=== PATIENT | female | born 1950 | race Caucasian/White ===

== ENCOUNTER 2020-10-13 07:04 | Emergency (ER) | payer MEDICARE, OTHER ==
[~2020-10-13 07:04] MED LIST: PROTONIX40 MG PO; ZOFRAN4 MG PO
[2020-10-13 08:07] LABS: HEMOGLOBIN 14.4 gm/dl (12.3-15.3); RED BLOOD COUNT 4.64 M/UL (4.00-5.10); WHITE BLOOD COUNT 7.5 K/UL (4.5-11.0)
[2020-10-13 08:28] LABS: BUN/CREATININE RATIO 17 (0-10)
[2020-10-13] MEDS ORDERED: ZOFRAN ODT 4 MG4 MG SL ×2 (08:47→09:02)
== END 2020-10-13 09:12 | disposition home or self-care (01) ==
LOC: ER1 07:04
PROVIDERS: Emergency Medicine
DX: R11.0 Nausea (principal); R51.9 Headache, unspecified; R68.83 Chills (without fever); T50.B95A Adverse effect of other viral vaccines, initial encounter
CPT/HCPCS: 80053; 81001; 83690; 85025; 96374; 96375; 99282; J1885; J2405; J7030

== ENCOUNTER 2021-01-21 00:44 | Emergency (ER) | payer MEDICARE, OTHER ==
[~2021-01-21 00:44] MED LIST changes: +ZOFRAN ODT 4 MG4 MG SL
[2021-01-21 03:55] LABS: HEMOGLOBIN 15.4 gm/dl (12.3-15.3); RED BLOOD COUNT 5.01 M/UL (4.00-5.10); WHITE BLOOD COUNT 2.8 K/UL (4.5-11.0)
[2021-01-21] MEDS ORDERED: PHENERGAN 12.12.5 M1 PO (07:04)
== END 2021-01-21 07:16 | disposition home or self-care (01) ==
LOC: ER1 00:44
PROVIDERS: Family Medicine
DX: D72.819 Decreased white blood cell count, unspecified (principal); R73.9 Hyperglycemia, unspecified; R63.0 Anorexia; Z20.822 Contact with and (suspected) exposure to COVID-19; I10 Essential (primary) hypertension
CPT/HCPCS: 71045; 80053; 81001; 82550; 82553; 83605; 83874; 84439; 84443; 84484; 85025; 93005; 96374; 99284; J2405; U0002

== ENCOUNTER → 2021-01-28 | Outpatient (CLI) | payer MEDICARE, OTHER ==
[~2021-01-28] MED LIST changes: +PHENERGAN 12.12.5 M1 PO
[2021-01-28 15:37] LABS: HEMOGLOBIN 13.2 gm/dl (12.3-15.3); RED BLOOD COUNT 4.36 M/UL (4.00-5.10); WHITE BLOOD COUNT 7.2 K/UL (4.5-11.0)
[2021-01-28 16:05] LABS: BUN/CREATININE RATIO 19 (0-10)
[2021-01-29 09:14] LABS: VITAMIN D, 25-HYDROXY 24.3 ng/mL (30.0-100.0)
[2021-01-29 12:14] LABS: HBSAG SCREEN Negative (Negative); HEP A AB, IGM Negative (Negative); HEP B CORE AB, IGM Negative (Negative); HEP C VIRUS AB <0.1 (0.0-0.9)
== END ==
LOC: LAB 13:40
PROVIDERS: Nurse Practitioner Family
DX: J30.9 Allergic rhinitis, unspecified (principal); E78.5 Hyperlipidemia, unspecified; I10 Essential (primary) hypertension; D51.9 Vitamin B12 deficiency anemia, unspecified; E55.9 Vitamin D deficiency, unspecified; R53.83 Other fatigue; E11.9 Type 2 diabetes mellitus without complications; Z79.899 Other long term (current) drug therapy
CPT/HCPCS: 36415; 80053; 80061; 80074; 82550; 82607; 83036; 84439; 84443; 84550; 85025; 85652; 86140